=== PATIENT | female | born 1980 | race American Indian/Alaskan Native ===

== ENCOUNTER 2020-04-25 14:43 | Emergency (ER) | payer OTHER ==
--- NOTE | 2020-04-25 15:29 | Emergency Department Report ---
ED Neck Pain/Injury HPI - General Chief Complaint: Back Pain/Injury Stated Complaint: BACK PAIN/NAVARRO ARM PAIN/NECK PAIN Time Seen by Provider: 04/25/20 15:24 Mode of arrival: Ambulatory Limitations: No Limitations - History of Present Illness Initial Comments: Patient is a 39-year-old female presents emergency room with complaints of bilateral neck pain that radiates down her arms that began 2 days ago. She states that occasionally she feels tingling down the arms and shooting pains. She denies any fall or injury. 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 She denies any fever, vomiting, diarrhea, arm swelling, complete numbness, weakness, bowel or bladder incontinence. She denies any past medical history. No allergies to medications. Last menstrual cycle 2 weeks ago. - Related Data Previous Rx's Medication Instructions Recorded Last Taken Type Menthol/Camphor [Grandin Patterson 1 applicatio TP BID #8 oint...g. 04/25/20 Unknown Rx Ointment] Naproxen [EC-Naprosyn] 500 mg PO BID PRN #14 tablet. 04/25/20 Unknown Rx Prednisone [predniSONE 10 mg 10 mg PO .TAPER #1 tab.ds.pk 04/25/20 Unknown Rx (6-Day Pack, 21 Tabs)] methOCARBAMOL [Robaxin TAB] 500 mg PO BID PRN #14 tab 04/25/20 Unknown Rx Allergies Allergy/AdvReac Type Severity Reaction Status Date / Time No Known Allergies Allergy Unverified 04/25/20 14:48 ED Review of Systems ROS: Stated complaint: BACK PAIN/NAVARRO ARM PAIN/NECK PAIN Other details as noted in HPI Comment: All other systems reviewed and negative ED Past Medical Hx - Past Medical History Previous Medical History?: No - Surgical History Past Surgical History?: No - Social History Smoking Status: Never Smoker Substance Use Type: None - Medications Home Medications: Home Medications Medication Instructions Recorded Confirmed Last Taken Type Menthol/Camphor [Grandin Patterson 1 applicatio TP BID #8 oint...g. 04/25/20 Unknown Rx Ointment] Naproxen [EC-Naprosyn] 500 mg PO BID PRN #14 tablet. 04/25/20 Unknown Rx Prednisone [predniSONE 10 mg 10 mg PO .TAPER #1 tab.ds.pk 04/25/20 Unknown Rx (6-Day Pack, 21 Tabs)] methOCARBAMOL [Robaxin TAB] 500 mg PO BID PRN #14 tab 04/25/20 Unknown Rx ED Physical Exam - General Limitations: No Limitations General appearance: alert, in no apparent distress - Head Head exam: Present: atraumatic, normocephalic - Eye Eye exam: Present: normal appearance - ENT ENT exam: Present: mucous membranes moist - Neck Neck exam: Present: normal inspection, tenderness (bilateral C-spine paraspinal muscular ttp, no midline C-spine ttp, no step offs, no deformities), full ROM. Absent: meningismus - Respiratory Respiratory exam: Present: normal lung sounds bilaterally. Absent: respiratory distress, wheezes, rales, rhonchi, stridor, chest wall tenderness, accessory muscle use, decreased breath sounds, prolonged expiratory - Cardiovascular Cardiovascular Exam: Present: regular rate, normal rhythm, normal heart sounds. Absent: systolic murmur, diastolic murmur, rubs, gallop - Back Exam Back exam: Present: normal inspection, full ROM. Absent: paraspinal tenderness, vertebral tenderness - Neurological Exam Neurological exam: Present: alert, oriented X3, CN II-XII intact, normal gait. Absent: motor sensory deficit - Psychiatric Psychiatric exam: Present: normal affect, normal mood - Skin Skin exam: Present: warm, dry, intact ED Course Vital Signs 04/25/20 04/25/20 14:48 15:32 Temperature 97.6 F 98 F Pulse Rate 117 H 94 H Respiratory 16 18 Rate Blood Pressure 157/112 Blood Pressure 149/101 [Right] O2 Sat by Pulse 100 100 Oximetry ED Medical Decision Making - Lab Data Vital Signs 04/25/20 04/25/20 14:48 15:32 Temperature 97.6 F 98 F Pulse Rate 117 H 94 H Respiratory 16 18 Rate Blood Pressure 157/112 Blood Pressure 149/101 [Right] O2 Sat by Pulse 100 100 Oximetry - Medical Decision Making Patient is a 39-year-old female presents emergency room with complaints of bilat eral neck pain that radiates down her arms that began 2 days ago. She states that occasionally she feels tingling down the arms and shooting pains. She denies any fall or injury. 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 She denies any fever, vomiting, diarrhea, arm swelling, complete numbness, weakness, bowel or bladder incontinence. She denies any past medical history. No allergies to medications. Last menstrual cycle 2 weeks ago. Initial vitals with elevated blood pressure and elevated heart rate which improved upon repeat without intervention. on exam:bilateral C-spine paraspinal muscular ttp, no midline C-spine ttp, no step offs, no deformities, no focal neuro deficits. Examination appears most consistent with muscle strain versus cervical radiculopathy. Patient has had no acute trauma, she has no midline tenderness, no step-offs, no deformities. Nexus criteria negative, C-spine can be cleared clinically. Patient given prescription for naproxen, Robaxin, prednisone, Grandin balm ointment. Advised patient Please use medication as prescribed. Do not drive or operate machinery while taking muscle relaxer Robaxin. May use ice pack, heating pad, rest, Epsom salt bath. Follow-up with your primary care doctor for reexamination. Return to emergency room for any new or worsening symptoms. - Differential Diagnosis Muscle strain, torticollis, bulging disc, cervical radiculopathy, DDD Critical care attestation.: If time is entered above; I have spent that time in minutes in the direct care of this critically ill patient, excluding procedure time. ED Disposition Clinical Impression: Neck pain Disposition: DC-01 TO HOME OR SELFCARE Is pt being admited?: No Does the pt Need Aspirin: No Condition: Stable Instructions: Cervical Radiculopathy, Muscle Strain Additional Instructions: Please use medication as prescribed. Do not drive or operate machinery while taking muscle relaxer Robaxin. May use ice pack, heating pad, rest, Epsom salt bath. Follow-up with your primary care doctor for reexamination. Return to emergency room for any new or worsening symptoms. Prescriptions: Naproxen [EC-Naprosyn] 500 mg PO BID PRN #14 tablet. PRN Reason: pain Prednisone [predniSONE 10 mg (6-Day Pack, 21 Tabs)] 10 mg PO .TAPER #1 tab.ds.pk methOCARBAMOL [Robaxin TAB] 500 mg PO BID PRN #14 tab PRN Reason: pain Menthol/Camphor [Grandin Patterson Ointment] 1 applicatio TP BID #8 oint...g. Referrals: KRISTEN TREVINO MD [Staff Physician] - 2-3 Days [facility] [Provider Group] - 2-3 Days Forms: Work/School Release Form(ED) Time of Disposition: 15:27 Print Language: [place]LAND[place]
[2020-04-25 15:33] VITALS: BP 149/101
== END 2020-04-25 15:52 | disposition home or self-care (01) ==
LOC: ED 14:43
DX: M54.2 Cervicalgia (principal); Z79.899 Other long term (current) drug therapy
CPT/HCPCS: 99282

== ENCOUNTER 2020-09-24 10:11 | Emergency (ER) | payer OTHER ==
[2020-09-24 11:00] VITALS: BP 100/54
--- NOTE | 2020-09-28 12:40 | Electrocardiograph Report ---
[facility] Test Date: 2020-09-24 Test Time: 10:23:48 Pat Name: MARK AC Department: Room: Gender: F Suit Attendant: DUSTIN : 1980 Requested By: ELMA RAUSCH Order Number: [id number] Reading MD: Issa Concepcion Measurements Intervals [place] Rate: 66 P: 29 NE: 180 QRS: 71 QRSD: 84 T: 60 QT: 415 QTc: 436 Interpretive Statements Sinus rhythm No previous ECG available for comparison Electronically Signed On 09-28-2020 12:40:06 EDT by Issa Concepcion
== END 2020-09-24 13:06 | disposition left against medical advice (07) ==
LOC: ED 10:11
DX: R50.9 Fever, unspecified (principal); Z53.21 Procedure and treatment not carried out due to patient leaving prior to being seen by health care provider
CPT/HCPCS: 93005